=== PATIENT | female | born 1960 | race American Indian/Alaskan Native ===

== ENCOUNTER 2021-11-25 13:32 | Outpatient (CLI) | payer OTHER ==
--- NOTE | 2021-11-27 08:50 | Mammography Report ---
DIGITAL SCREENING MAMMOGRAM WITH TOMOSYNTHESIS WITH CAD, 11/25/2021 CLINICAL INFORMATION / INDICATION: Routine Screening Mammography. TECHNIQUE: Digital bilateral 2D and 3D mammography with tomosynthesis was obtained in the craniocaud al and mediolateral oblique projections. Computer-Aided Detection (CAD) analysis was used for interp retation of this study. COMPARISON: None available FINDINGS: Breast Density: There are scattered areas of fibroglandular density. No dominant mass, suspicious calcifications, or architectural distortion in either breast. IMPRESSION: No mammographic evidence of malignancy. Follow up recommendation: Routine yearly BI-RADS Category 1: NEGATIVE A "normal" or negative report should not discourage follow up or biopsy of a clinically significant f inding. A written summary of these findings will be mailed to the patient. The patient will be entered into a mammography reporting system which will generate a reminder letter for the patient's next appointmen t at the appropriate interval. The [employer] recommends yearly mammograms starting at age 40 and continuing as l enid as a woman is in good health. Breast MRI is recommended for women with an approximate 20-25% or greater lifetime risk of breast cancer, including women with a strong family history of breast or ova georgette cancer or who have been treated for Hodgkin's disease. Signer Name: Katiuska Crandall MD Signed: 11/27/2021 8:45 AM Workstation Name: [id number]
== END 2021-11-25 13:33 | disposition home or self-care (01) ==
LOC: SPVWC 13:32
PROVIDERS: ATTEND Internal Medicine
DX: Z12.31 Encounter for screening mammogram for malignant neoplasm of breast (principal)
CPT/HCPCS: 77063; 77067

== ENCOUNTER 2022-03-07 05:38 | Emergency (ER) | payer OTHER ==
[2022-03-07] MEDS ORDERED: KETOROLAC 30 MG/1 ML INJ IM ONE (08:48)
--- NOTE | 2022-03-07 09:25 | Emergency Department Report ---
ED Back Pain/Injury HPI - General Chief Complaint: Back Pain/Injury Stated Complaint: SCIATICA PAIN LEFT SIDE Time Seen by Provider: 03/07/22 08:48 Source: patient Limitations: No Limitations - History of Present Illness Initial Comments: Patient 61-year-old female with history of sciatica who presents for low back pain radiating to left lower leg. Pain is rated at 5/10 this is usual site for sciatica flare for this patient. Patient states she is out of muscle relaxers. There is been no new fall injury or trauma. There is been no decrease or loss of bowel or bladder function. Pain is exacerbated by beach reaching bending and twisting., Pain is relieved by resting. Patient remains amatory with steady gait however prolonged walking exacerbates pain. Is been no dysuria frequency or urgency. Usual treatment for flares NSAIDs and muscle relaxers. Other medical history includes hypertension and diabetes. MD Complaint: back pain - Related Data Previous Rx's Medication Instructions Recorded Last Taken Type Cyclobenzaprine [Flexeril] 10 mg PO BID PRN #15 tab 03/07/22 Unknown Rx Menthol/Camphor [[place] 1 applic TP Q6H PRN #1 tube 03/07/22 Unknown Rx Ointment] Naproxen 500 mg PO BID PRN #30 tab 03/07/22 Unknown Rx Allergies Allergy/AdvReac Type Severity Reaction Status Date / Time No Known Allergies Allergy Unverified 03/07/22 05:43 ED Review of Systems ROS: Stated complaint: SCIATICA PAIN LEFT SIDE Other details as noted in HPI Constitutional: denies: chills, fever Eyes: denies: eye pain, eye discharge, vision change ENT: denies: ear pain, throat pain Respiratory: no symptoms reported Cardiovascular: as per HPI Endocrine: no symptoms reported Gastrointestinal: denies: abdominal pain, nausea, vomiting, diarrhea Genitourinary: denies: urgency, dysuria, frequency, discharge Musculoskeletal: back pain, arthralgia, myalgia Skin: denies: rash, lesions Neurological: as per HPI. denies: headache, weakness, numbness, paresthesias, vertigo Psychiatric: denies: anxiety, depression Hematological/Lymphatic: denies: easy bleeding, easy bruising ED Past Medical Hx - Past Medical History Previous Medical History?: Yes Hx Hypertension: Yes Hx Diabetes: Yes Additional medical history: cholesterol - Surgical History Past Surgical History?: Yes Additional Surgical History: back surgery, hysterectomy, 2 c-sections, left breast surgery - Social History Smoking Status: Never Smoker Substance Use Type: None - Medications Home Medications: Home Medications Medication Instructions Recorded Confirmed Last Taken Type Cyclobenzaprine [Flexeril] 10 mg PO BID PRN #15 tab 03/07/22 Unknown Rx Menthol/Camphor [[place] 1 applic TP Q6H PRN #1 tube 03/07/22 Unknown Rx Ointment] Naproxen 500 mg PO BID PRN #30 tab 03/07/22 Unknown Rx ED Physical Exam - General Limitations: No Limitations General appearance: alert - Head Head exam: Present: normocephalic, normal inspection - Eye Eye exam: Present: EOMI Pupils: Present: normal accommodation - ENT ENT exam: Present: mucous membranes moist - Neck Neck exam: Present: normal inspection - Respiratory Respiratory exam: Present: normal lung sounds bilaterally. Absent: respiratory distress - Cardiovascular Cardiovascular Exam: Present: regular rate, normal rhythm, normal heart sounds. Absent: systolic murmur, diastolic murmur, rubs, gallop - GI/Abdominal GI/Abdominal exam: Present: soft, normal bowel sounds. Absent: distended, tenderness - Rectal Rectal exam: Present: deferred - Extremities Exam Extremities exam: Present: normal inspection, full ROM, normal capillary refill. Absent: tenderness - Back Exam Back exam: Present: full ROM, muscle spasm, paraspinal tenderness. Absent: vertebral tenderness - Expanded Back Exam Expanded Back exam: Absent: saddle anesthesia Back exam: Positive Straight Leg Raise: Left (Pain is sciatic notch with deep palpation range of motion is intact and unrestricted), Negative Straight Leg Raising: Right - Neurological Exam Neurological exam: Present: alert, oriented X3, CN II-XII intact, normal gait, reflexes normal. Absent: motor sensory deficit - Expanded Neurological Exam Expanded Patient oriented to: Present: person, place, time Speech: Present: fluid speech Cerebellar function: Heel to [place]: Normal Motor strength exam: RUE: 5, LUE: 5, RLE: 5, LLE: 5 DTR: knee (R): 1+, knee (L): 1+ Best Eye Response (Elton): (4) open spontaneously Best Motor Response (Elton): (6) obeys commands Best Verbal Response (Elton): (5) oriented Elton Total: 15 - Psychiatric Psychiatric exam: Present: normal affect, normal mood - Skin Skin exam: Present: warm, dry, intact, normal color. Absent: rash ED Course Vital Signs 03/07/22 05:43 Pulse Rate 73 Respiratory 16 Rate Blood Pressure 135/67 O2 Sat by Pulse 100 Oximetry ED Medical Decision Making - Medical Decision Making Medications given in ED current patient is currently alert oriented x3, ambulating with steady gait from hallway to room without increase in pain patient will be DC'd home in stable condition at this time. Patient DC'd with prescriptions moist heat therapy follow-up with orthopedics as scheduled. Critical care attestation.: If time is entered above; I have spent that time in minutes in the direct care of this critically ill patient, excluding procedure time. ED Disposition Clinical Impression: Low back strain Qualifiers: Encounter type: initial encounter Qualified Code(s): S39.012A - Strain of muscle, fascia and tendon of lower back, initial encounter Disposition: HOME / SELF CARE / HOMELESS Is pt being admited?: No Does the pt Need Aspirin: No Condition: Stable Instructions: Low Back Sprain or Strain Rehab-SportsMed Additional Instructions: Take medications as prescribed, use moist heat therapy as directed, back exercises follow-up with your doctor in 2 to 3 days. Return to emergency depart ment should symptoms worsen. Prescriptions: Cyclobenzaprine [Flexeril] 10 mg PO BID PRN #15 tab PRN Reason: pain Naproxen 500 mg PO BID PRN #30 tab PRN Reason: pain Menthol/Camphor [[place] Ointment] 1 applic TP Q6H PRN #1 tube PRN Reason: pain Referrals: HORTENCIA BAXTER MD [Staff Physician] - 3-5 Days Forms: Work/School Release Form(ED) Time of Disposition: 09:45
[2022-03-07 10:02] VITALS: BP 130/88
== END 2022-03-07 10:02 | disposition home or self-care (01) ==
LOC: ED 05:38
DX: S39.012A Strain of muscle, fascia and tendon of lower back, initial encounter (principal); I10 Essential (primary) hypertension; E11.9 Type 2 diabetes mellitus without complications; E78.00 Pure hypercholesterolemia, unspecified; Z90.710 Acquired absence of both cervix and uterus; Z98.890 Other specified postprocedural states; X58.XXXA Exposure to other specified factors, initial encounter; Y93.89 Activity, other specified; Y92.89 Other specified places as the place of occurrence of the external cause; Y99.8 Other external cause status
CPT/HCPCS: 96372; 99282; J1885

== ENCOUNTER 2022-03-13 00:58 | Emergency (ER) | payer OTHER | END 2022-03-13 03:33 | disposition left against medical advice (07) | LOC: ED 00:58 | DX: M54.9 Dorsalgia, unspecified (principal); Z53.21 Procedure and treatment not carried out due to patient leaving prior to being seen by health care provider ==